=== PATIENT | male | born 1960 | race Caucasian/White ===

== ENCOUNTER 2019-11-03 07:44 | Day surgery (SDC) | payer OTHER ==
[~2019-11-03 07:44] MED LIST: HYZAAR 100-251 EACH PO; JANUVIA100 MG PO; LIPITO PO; METFORMIN HCL500 MG PO; OMEGA 3 1,0001 EACH PO; OMEPRAZOLE MAGN20 MG PO; VERAPAMIL ER240 MG PO; WELLBUTRIN XL300 MG PO
== END 2019-11-03 11:22 | disposition home or self-care (01) ==
LOC: CIR.AMB 07:44
DX: G56.01 Carpal tunnel syndrome, right upper limb (principal); M65.331 Trigger finger, right middle finger

== ENCOUNTER → 2020-12-15 14:53 | Outpatient (CLI) | payer OTHER | END | disposition home or self-care (01) | LOC: PPH VACUNA 14:53 | DX: Z23 Encounter for immunization (principal) ==

== ENCOUNTER 2020-12-27 06:54 | Day surgery (SDC) | payer OTHER | END 2020-12-27 16:00 | disposition home or self-care (01) | LOC: CIR.AMB 06:54 | PROVIDERS: ATTEND Orthopaedic Surgery Hand Surgery | DX: M65.341 Trigger finger, right ring finger (principal); Z20.822 Contact with and (suspected) exposure to COVID-19 ==

== ENCOUNTER 2021-06-23 10:25 | Outpatient (CLI) | payer OTHER | END 2021-06-23 11:00 | disposition home or self-care (01) | LOC: PPH VACUNA 10:25 | PROVIDERS: ATTEND Emergency Medicine Pediatric Emergency Medicine | DX: Z23 Encounter for immunization (principal) ==

== ENCOUNTER 2023-11-05 05:26 | Day surgery (SDC) | payer OTHER ==
[2023-11-01 11:37] LABS: HEMATOCRIT 39.2 % (39.0-48.0); HEMOGLOBIN 13.3 g/dL (13-16.00); MEAN CORPUSCULAR HEMOGLOBIN 30.2 pg (27.00-32.0); MEAN CORPUSCULAR HGB CONC 33.9 g/dl (32.0-36.0); PLATELET COUNT 260 K/uL (150-450); RED BLOOD COUNT 4.41 M/uL (4.00-6.00); RED CELL DISTRIBUTION WIDTH 13.8 % (11.5-14.5)
[2023-11-01 11:40] LABS: PH,URINE 6.5 (5.0-8.0); URINE APPEARANCE Clear; URINE BILIRRUBIN Negative (NEGATIVE); URINE BLOOD Negative; URINE COLOR Yellow; URINE GLUCOSE Negative (NEGATIVE); URINE LEUKOCYTE Negative; URINE NITRATE Negative; URINE PROTEIN Negative (NEGATIVE)
[2023-11-01 11:45] LABS: URINE BACTERIA 8.8 uL (0.0-1933)
[2023-11-01 11:49] LABS: URINE EPITHELIAL CELLS 0.4 uL (0.0-38.8); URINE RBC 1.8 uL (0.0-20.8); URINE WBC 1.5 uL (0.0-23.2)
[2023-11-01 12:24] LABS: INR 1.08; PARTIAL THROMBOPLASTIN TIME 30.6 SECONDS (22.0-34.0); PROTHROMBIN TIME 11.3 SECONDS (9.0-11.5)
[2023-11-01 12:26] LABS: ALBUMIN 4.1 gm/dL (3.4-5.0); BILIRUBIN TOTAL 0.54 mg/dL (0.3-1.2); CALCIUM 9.4 mg/dL (8.5-10.1); CREATININE SERUM 0.74 mg/dL (0.70-1.30); GFR 106.48; GLOBULINA 3.2 G/DL (2.4-3.5); POTASSIUM 4.36 mEq/L (3.5-5.1); TOTAL PROTEIN 7.3 gm/dL (6.4-8.2)
[~2023-11-05 05:26] MED LIST changes: +ADULT LOW DOSE81 M1; +LIPITOR40 M1; +LOVAZA1 GM; +METFORMIN HCL1000 M2 PO; +METROPOLOR
[2023-11-05] MEDS ORDERED: CEFAZOLIN SODIUM 1,000 MG VIAL ONE (07:12)
[2023-11-05] MEDS ORDERED: BUPIVACAINE HCL/PF 0.5% 30ML ML ONE (07:16)
[2023-11-05] MEDS ORDERED: CEFAZOLIN SODIUM 1,000 MG VIAL IV ONE (08:15)
[2023-11-05] MEDS ORDERED: ISOPROPYL ALCOHOL 30 ML OUNCE TOP ONE (08:15)
[2023-11-05] MEDS ORDERED: BUPIVACAINE HCL/PF 0.5% 30ML ML IJ ONE (08:15)
== END 2023-11-05 10:45 | disposition home or self-care (01) ==
LOC: CIR.AMB 05:26
PROVIDERS: ATTEND Orthopaedic Surgery Hand Surgery
DX: G56.02 Carpal tunnel syndrome, left upper limb (principal); M65.332 Trigger finger, left middle finger; M65.342 Trigger finger, left ring finger; E11.9 Type 2 diabetes mellitus without complications; E78.00 Pure hypercholesterolemia, unspecified; Z20.822 Contact with and (suspected) exposure to COVID-19; I10 Essential (primary) hypertension